=== PATIENT | female | born 2005 | race Caucasian/White ===

== ENCOUNTER 2025-03-29 16:34 | Emergency (ER) | payer OTHER, SELFPAY ==
--- OUTSIDE RECORDS SUMMARY | 2024-08-14 10:30 | XMS_ITS ---
Author Organization [facility] es Address [address] [place] [address] Care Team Providers Care Collections Attorney Name Role Phone Niya Maldonado Primary Care Provider REASON FOR VISIT Pt is a 18 year old female JAILENE FROM [facility] [employer] Medications Medication SIG (Take, Route, Frequency, Duration) Notes Start Date End Date Status PROzac 10 MG Capsule 1 capsule Orally Once a day ; Duration: 30 day(s) Not-Taking/PRNAuvelity 45-105 MG Tablet Extended Release1 tablet in the morning Orally Once a day; Duration: 30 day(s)04/07/2023ctivehydrOXYzine HCl 25 MG TabletTAKE 1 TO 2 TABLETS BY MOUTH ONCE DAILY NEEDED FOR 30 DAYS; Duration: 30ActiveSertraline HCl 50 MG TabletTAKE 1 TABLET BY MOUTH EVERY DAY; Duration: 30 day(s)Not-Taking/PRN Encounters Encounter Location Date Provider Diagnosis [address] [address] 08/14/2024 Niya Maldonado Plan Of Treatment No Information Progress Notes * COREY ROSASDOB: [birth year] (19 yo F)Acc No.[id number]:08/14/2024 Behavioral Health Patient: Beto COREY SPENCER :?Niya MaldonadoDOB:2005???Age:18 Y???Sex: FemaleDate:08/14/2024Phone:[phone]:[address] [id number] Subjective: * Chief Complaints: * P t is a 18 year old female JAILENE FROM [facility] * Medications: T akingAuvelity 45-105 MG Tablet Extended Release 1 tablet in the morning Orally Once a day hydrOXYzine HCl 25 MG Tablet TAKE 1 TO 2 TABLETS BY MOUTH ONCE DAILY NEEDED FOR 30 DAYS Taking Auvelity 45-105 MG Tablet Extended Release 1 tablet in the morning Orally Once a day Taking hydrOXYzine HCl 25 MG Tablet TAKE 1 TO 2 TABLETS BY MOUTH ONCE DAILY NEEDED FOR 30 DAYS Not-Taking/PRNPROzac 10 MG Capsule 1 capsule Orally Once a day Sertraline HCl 50 MG Tablet TAKE 1 TABLET BY MOUTH EVERY DAY Not-Taking/PRN PROzac 10 MG Capsule 1 capsule Orally Once a day Not-Taking/PRN Sertraline HCl 50 MG Tablet TAKE 1 TABLET BY MOUTH EVERY DAY Billing Information: * Procedure Codes: * Electronic signature of ROBBIE RichHNP on 03/29/2025 at 05:22 PM EST Sign off status: Pending * Provider: Beto Maldonado Date: 0 08/14/2024 Generated for Printing/Faxing/eTransmitting on:?03/29/2025 05:22 PM EST
--- OUTSIDE RECORDS SUMMARY | 2024-12-10 05:30 | XMS_ITS ---
Author Organization [facility] es Address [address] [place] [address] Care Team Providers Care Punch Press Feeder Name Role Phone Niya Maldonado Primary Care Provider REASON FOR VISIT 2 month F/U virtual Doximity Encounters Encounter Location Date Provider Diagnosis [facility] [address] [place] [address] 12/10/2024 Niya Maldonado Plan Of Treatment No Information Progress Notes * COREY ROSASDOB: [birth year] (19 yo F)Acc No.[id number]:12/10/2024 Behavioral Health Patient: COREY NICOLE :?Niya MaldonadoDOB:2005???Age:19 Y???Sex: FemaleDate:12/10/2024Phone:[phone]:[address] [id number] Subjective: * Chief Complaints: * 2 month F/U virtual Doximity Billing Information: * Procedure Codes: * Electronic signature of RAMÓN Rich on 03/29/2025 at 05:22 PM EST Sign off status: Pending * Provider: Beto Maldonado Date: 0 12/10/2024 Generated for Printing/Faxing/eTransmitting on:?03/29/2025 05:22 PM EST
--- OUTSIDE RECORDS SUMMARY | 2024-12-27 03:15 | XMS_ITS ---
Author Organization [facility] es Address [address] [place] [address] Care Team Providers Care Unleavened Dough Mixer Name Role Phone Niya Maldonado Primary Care Provider [phone] REASON FOR VISIT BH F/U Encounters Encounter Location Date Provider Diagnosis [facility] [address] [place] [address] 12/27/2024 Niya Maldonado Plan Of Treatment No Information Progress Notes * COREY ROSASDOB: [birth year] (19 yo F)Acc No.[id number]:12/27/2024 Behavioral Health Patient: COREY NICOLE :?Niya MaldonadoDOB:2005???Age:19 Y???Sex: FemaleDate:12/27/2024Phone:[phone]:[address] [place] [id number] Subjective: * Chief Complaints: * B H F/U Billing Information: * Procedure Codes: * Electronic signature of RAMÓN Rich on 03/29/2025 at 05:23 PM EST Sign off status: Pending * Provider: Beto Maldonado Date: 0 12/27/2024 Generated for Printing/Faxing/eTransmitting on:?03/29/2025 05:23 PM EST
[2025-03-29 16:58] VITALS: BP 111/71; PULSE 81; TEMP 37.1; O2SAT 100; BMI 23.8
--- OUTSIDE RECORDS SUMMARY | 2025-03-29 17:23 | XMS_ITS | Patient Health Record ---
Author Organization [employer] [facility] es Address [address] [place] [address] Care Team Providers Care Respiratory Care Faculty Name Role Phone Niya Maldonado Primary Care Provider [phone] Allergies No Known Allergies Reason For Referral No Information Medications Medication SIG (Take, Route, Frequency, Duration) Notes Start Date End Date Status cloNIDine HCl 0.1 MG Tablet 1 tablet at bedtime Orally Once a day new medication :) 09/10/2024 ActivePROzac 20 MG Capsule1 capsule Orally Once a day; Duration: 30 daysActive Auvelity 45-105 MG Tablet Extended Release1 tablet in the morning Orally Once a day; Duration: 30 day(s)04/07/2023Not-Taking/PRNhydrOXYzine HCl 25 MG TabletTAKE 1 TO 2 TABLETS BY MOUTH ONCE DAILY NEEDED FOR 30 DAYS; Duration: 30 Not-Taking/PRNSertraline HCl 50 MG TabletTAKE 1 TABLET BY MOUTH EVERY DAY; Duration: 30 day(s)Not-Taking/PRN Social History Tobacco Use: Social History Observation Description Date Details (start date - stop date) Current Smoker NA - NA Social History GeneralSocial InfoQuestionAnswerNotesDepression Screening (PHQ-9):Little interest or pleasure in doing thingsNearly every dayFeeling down, depressed, or hopelessSeveral daysTrouble falling or staying asleep, or sleeping too much Nearly every dayFeeling tired or having little energyNearly every dayPoor appetite or overeatingNearly every dayFeeling bad about yourself-or that you are a failure or have let yourself or your family downNot at allTrouble concentrating on things, such as reading the newspaper or watching television Several daysMoving or speaking so slowly that other people could have noticed. Or the opposite being so fidgetyor restless that you have been moving around a lot more than usualMore than half the daysThoughts that you would be better off , or of hurting yourself in some waySeveral days(Consider Suicide Assessment Risk)Total Elvzw19EnvzzxphgxffwHztvwszumz severe depressionSubstance abuse/mental health issues of patient/familyPatient -DeniesDrug/Alcohol:Social InfoQuestionAnswerNotesAUDIT-C (Standard)Did you have a drink containing alcohol in the past year?QnJajynz8GhkuexwhdnxrtfAyyxhjlfZiufcrf Use:Social InfoQuestion AnswerNotesTobacco Control (Standard)Tobacco use:Current smoker? How often do you smoke cigarettes?Every day? Are you interested in quitting?Not ready to quit Additional Findings: Tobacco usere-cigaretteSection Notes: Vape Vape Vape Vape Problems Problem Type SNOMED Code ICD Code Onset Dates Problem Status W/U Status Risk Notes Problem Generalized anxiety disorder (24997418) Generalized Anxiety Disorder (CONY) (F41.1) ActiveconfirmedProblemPosttraumatic stress disorder (40644315)PTSD (post- traumatic stress disorder) (F43.10)ActiveconfirmedProblemMajor depression, single episode (81637861)Major depressive disorder with current active episode, unspecified depression episode severity, unspecified whether recurrent (F32.9) ActiveconfirmedProblemRecurrent major depressive episodes, moderate (550578011) Recurrent major depressive episodes, moderate (F33.1)Activeconfirmed Vital Signs Heart Rate 70 /min 09/10/2024 Puogserddts01.5 degrees Qqvdwenmrb85/05/7625Zxkywdnc47 %09/10/2024lood pressure fwuvwgboo02 mm Hg09/10/20246356Lvwike93.5 in09/10/2024lood pressure gcawotzc075 mm Hg09/10/20247619Zejaxn050.0 lbs09/10/2024BMI20.34 kg/m209/10/2024 Encounters Encounter Location Date Provider Diagnosis [facility] [address] [place] [address] 12/10/2024 Niya Maldonado [facility] [address] [place] [address]/12/2024 Niya EricaRecurrent major depressive episodes, moderate F33.1F[facility] [address] [place] [address]/Leslie AlexibergerRecurrent major depressive episodes, moderate F33.1 ; Generalized Anxiety Disorder (CONY) F41.1 and PTSD (post-traumatic stress disorder) F43.10[facility] [place] [address]/09/2024Leslidoreen MaldonadoRecurrent major depressive episodes, moderate F33.1 ; Generalized Anxiety Disorder (CONY) F41.1 and PTSD (post-traumatic stress disorder) F43.10[facility] [place] [address]/07/2024Lesyaneli MaldonadoRecurrent major depressive episodes, moderate F33.1 ; Generalized Anxiety Disorder (CONY) F41.1 and PTSD (post-traumatic stress disorder) F43.10 Assessments Encounter Date Diagnosis (ICD Code) Assessment Notes Treatment Notes Treatment Clinical Notes Section Notes 08/21/2024 Recurrent major depressive episo olesya, moderate (ICD-10 - F33.1) Informed consent obtained: YES, we discussed the diagnosis/diagnoses, the treatment options, treatment(s) recommendations vs. no treatment. We discussed risks and benefits of treatment options, treatment recommendations vs. no treatment. Currently at low risk for self harm. Denies ongoing feelings of hopelessness. Denies ongoing suicidal ideation, intent or plan in session. Pharmacological management: Alternative medication plans were discussed with the patient and or guardian. All relevant and serious adverse effects were discussed. Standard precautions and potential benefits were discussed. Patient/Guardian consented to begin medication/ continue treatment plan. questions answered satisfactorily, agreeable to treatment plan Cont current treatment Tolerating meds well, compliant Call for problems Follow up 3 weeks Patient/Guardian will call sooner if symptoms worsen. Patient understands to go to the ER if neededif symptoms become severe. Crisis intervention plan was discussed and agreed upon. Patient/Guardian will call 911 in case of emergency. Emergency contact information was provided to the patient/guardian. 09/10/2024Recurrent major depressive episodes, moderate (ICD-10 - F33.1) Informed consent obtained: YES, we discussed the diagnosis/diagnoses, the treatment options, treatment(s) recommendations vs. no treatment. We discussed risks and benefits of treatment options, treatment recommendations vs. no treatment. Currently at low risk for self harm. Denies ongoing feelings of hopelessness. Denies ongoing suicidal ideation, intent or plan in session. Pharmacological management: Alternative medication plans were discussed with the patient and or guardian. All relevant and serious adverse effects were discussed. Standard precautions and potential benefits were discussed. Patient/Guardian consented to begin medication/ continue treatment plan. questions answered satisfactorily, agreeable to treatment plan Cont current treatment Tolerating meds well, compliant Call for problems Follow up 1 month Patient/Guardian will call sooner if symptoms worsen. Patient understands to go to the ER if neededif symptoms become severe. Crisis intervention plan was discussed and agreed upon. Patient/Guardian will call 911 in case of emergency. Emergency contact information was provided to the patient/guardian. 10/09/2024Recurrent major depressive episodes, moderate (ICD-10 - F33.1) Informed consent obtained: YES, we discussed the diagnosis/diagnoses, the treatment options, treatment(s) recommendations vs. no treatment. We discussed risks and benefits of treatment options, treatment recommendations vs. no treatment. Currently at low risk for self harm. Denies ongoing feelings of hopelessness. Denies ongoing suicidal ideation, intent or plan in session. Pharmacological management: Alternative medication plans were discussed with the patient and or guardian. All relevant and serious adverse effects were discussed. Standard precautions and potential benefits were discussed. Patient/Guardian consented to begin medication/ continue treatment plan. questions answered satisfactorily, agreeable to treatment plan Cont current treatment Tolerating meds well, compliant Call for problems Follow up 2 months Patient/Guardian will call sooner if symptoms worsen. Patient understands to go to the ER if neededif symptoms become severe. Crisis intervention plan was discussed and agreed upon. Patient/Guardian will call 911 in case of emergency. Emergency contact information was provided to the patient/guardian. 12/14/2024Recurrent major depressive episodes, moderate (ICD-10 - F33.1) 10/09/2024Generalized Anxiety Disorder (CONY) (ICD-10 - F41.1)09/10/2024 Generalized Anxiety Disorder (CONY) (ICD-10 - F41.1)Clonidine- Encouraged to call office or report to the if the patient experiences dizziness or lightheadedness 08/21/2024Generalized Anxiety Disorder (CONY) (ICD-10 - F41.1)08/21/2024PTSD (post-traumatic stress disorder) (ICD-10 - F43.10)09/10/2024PTSD (post-traumatic stress disorder) (ICD-10 - F43.10)10/09/2024PTSD (post-traumatic stress disorder) (ICD-10 - F43.10) Plan Of Treatment No Information Insurance Providers Payer Name Payer Address Payer Phone Subscriber Number Group Number Insured Name Patient Relationship to Insured Coverage Start Date Coverage End Date [employer] [place] [employer] [address] [place] [address] [id number] Rishi ROSAS - patient is the [id number] 2024 Wrap [facility] [address] [place] [id number], ISABELLASelf - patient is the [id number] 2024 Medical (General) History Medical History History ICD Code Acid Reflux
--- OUTSIDE RECORDS SUMMARY | 2025-03-29 17:23 | XMS_ITS | Clinical Summary ---
Author Organization [facility] Address [address] [place] [address] Phone Care Team Providers Care Motion Picture Camera Operator Name Role Phone Unavailable Primary Care Provider Unavailabl e Social History Tobacco UseTypesPacks/DayYears UsedDateSmoking Tobacco: Never Assessed CommentsUnknownSex and Gender InformationValueDate RecordedSex Assigned at Not on fileLegal UtkRccoor85/25/2022 8:53 PM ESTGender IdentityNot on fileSexual OrientationNot on file Last Filed Vital Signs Vital SignReadingTime TakenCommentsBlood Sqjuekdo190/7209 2:49 PM EDT Clbuh20399/06/2021 1:08 PM CZFEmqixviuuzi95.9 ??C (98.5 ??F)04/13/2021 1:08 PM ESTRespiratory Rate--Oxygen Klvubztlkp10%04/13/2021 1:08 PM ESTInhaled Oxygen Concentration--Somqiy47 kg (130 lb)07/02/2021 2:32 PM CVNRzuprp481.2 cm (5' 1.5 )01/20/2021 2:49 PM EDTBody Mass Index-- Plan of Treatment Health MaintenanceDue DateLast DoneCommentsHIV Igyzetuvz59/12/2004Lipid Panel 2003Hepatitis B Vaccines (3 of 3 - 3-dose series), 2003Hearing Screening (#1)2007HPV Vaccines (2 - 2-dose series) Meningococcal B Vaccine (1 of 2 - Standard)2019 Hepatitis C Ppzwmhtzr39/12/2022Yearly Adult Gflpxipd21/ervical Cancer Xvozlshmz81/12/2025HPV/Vdqrfo9109/17/2024Pap Smear09/17/2024Influenza Vaccine (#1)2024OVID-19 Vaccine ( - season)2025 DTaP/Tdap/Td Vaccines (6 - Td or Tdap)6010/14/2015, 11/28/2008, 08/13/2004, Additional history existsZoster Vaccines (1 of 2)09/17/2053 11/28/2008, 11/11/2004Pneumococcal Vaccine: Pediatrics and At-Risk Adult PatientsAged Out08/13/2004, 05/11/2004, 03/20/2004, Additional history existsNo longer eligible based on patient's age to complete this topicHIB Vaccines Pewlncjgr04/06/2005, 05/11/2004, 03/20/2004, Additional history existsIPV EiznmoutJbkyjqifi78/23/2009, 08/13/2004, 05/11/2004, Additional history exists MMR WjctrannBjxidndkg33/23/2009, 11/11/2004Hepatitis A VaccinesCompleted 10/14/2015, 12/18/2013Meningococcal VaccineAged Out10/14/2015No longer eligible based on patient's age to complete this topicRotavirus VaccinesAged OutNo longer eligible based on patient's age to complete this topic
--- OUTSIDE RECORDS SUMMARY | 2025-03-29 17:23 | XMS_ITS | Clinical Summary ---
Author Organization [facility] Address [address] [place] [place] [address] Care Team Providers Care Orthopedic Podiatrist Name Role Phone Morenita Javed MD, IBCLC Primary Care Provid er Allergies No known active allergies Medications MedicationSigDispense QuantityRefillsLast FilledStart DateEnd DateStatus FLUoxetine (PROzac) 20 MG capsule Indications:Major depressive disorder with single episode, in full remissionTake 1 capsule (20 mg) by mouth Daily 90 capsule [id number] Additional Information Patient not taking.Reported on 02/25/2025 multivitamin () 27-0.8 MG tablet Take 1 tablet by mouth DailyActive Active Problems ProblemNoted DateDiagnosed TgcoQdzjdqk51/21/2023 Assessment & Plan (12/27/2022 1:59 PM EDT): 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 I agree Zoloft to inna good option for her. I encouraged her to start this. Reviewed potential side effects and ways to mitigate them. Her review of systems is positive for anxiety, irregular menstrual cycle this past month, diarrhea,heat intolerance, night sweats. Therefore I recommend checking thyroid studies to r/o hyperthyroidism. Will call or message with results Difficulty /21/2023 Assessment & Plan (12/27/2022 1:52 PM EDT): Patient has difficulty falling asleep due to racing thoughts and worrying about falling asleep. I do believe SSRI will eventually help with this, though it may take time. Recommend practicing sleep hygiene to help reset sleep associations Estimated Date of TiacnxhqHckicrtfFca35/28/2026ased on Ultrasound Resolved Problems ProblemNoted DateDiagnosed DateResolved SfukCnavmaxtaotx96 Menorrhagia with irregular cycle Encounters DateTypeDepartmentCare EanwVxhetknzxpa95/04/2025 10:15 AM ESTAncillary Procedure [facility] Holden KEENANN [address] [place] [address] Spotting affecting in first trimester ([facility])03/12/2025Travel 02/27/2025Telephone [facility]OMT[facility] Holden KEENANN [address] [place] [address] Tamara Rosario LPN 02/25/2025 2:30 PM EDTInitial [facility]OMTano Holden KEENANN [address] [place] [address] [place]: 4w1d02/25/20259153Mumflh99/08/2025Results Follow-Up [place] [address] [place] [address] Morenita Javed MD, IBCLC HCG, quantitative, , HCG, quantitative, zgzlecukq10/07/2025Telephone [facility] Holden NICKGYN [address] [place] [address] Sarah Berry DO 02/11/2025Telephone [address] [address] Morenita Javed MD, IBCLC Lab Tquzjf7601/09/2025 10:20 AM EDTOffice Visit [address] [address] Morenita Javed MD, IBCLC Annual physical exam (Primary Dx); Major depressive disorder with single episode, in full remission ; Psychophysiological jzuftabj08/03/2025amboo flowsheet [facility] [address] [place] [address] Morenita Javed MD, IBCLC 01/09/20256852Nwyldm70/02/5744Xoyjad83/27/2025Travelfrom Last 3 Months Family History Medical HistoryRelationNameCommentsHeart attackFatherHeart diseaseFatherNo Known ProblemsMaternal GrandfatherHypertensionMaternal GrandmotherHashimoto's thyroiditisMotherHypertensionMotherEndometriosisOther 1cousinDown syndromeOther 2siblingStillbirthNo Known ProblemsPaternal GrandfatherNo Known ProblemsPaternal GrandmotherRelationNameStatusCommentsFatherAliveMaternal GrandfatherMaternal GrandmotherMotherAliveOther 1cousinOther 2siblingPaternal GrandfatherPaternal Grandmother Social History Tobacco UseTypesPacks/DayYears UsedDateSmoking Tobacco: NeverSmokeless Tobacco: Never Tobacco Cessation:Counseling Given: Not Answered Alcohol UseStandard Drinks/WeekCommentsNever0 (1 standard drink = 0.6 oz pure alcohol)B1300 Health LiteracyAnswerDate RecordedHow often do you need to have someone help you when you read instructions, pamphlets, or other written material from your doctor or pharmacy?Never03/07/2024Social Connection and Isolation PanelAnswerDate RecordedIn a typical week, how many times do you talk on the phone with family, friends, or neighbors?More than three times a week 03/07/2024How often do you get together with friends or relatives?More than three times a week03/07/2024How often do you attend yarsanism or scientologist services?Never4Do you belong to any clubs or organizations such as yarsanism groups, unions, fraternal or athletic groups, or school groups?No 03/07/2024How often do you attend meetings of the clubs or organizations you belong to?Never4Are you , , , , never , or living with a partner?Living with ggwctne2803/07/2024UDIT-CAnswerDate RecordedQ1: How often do you have a drink containing alcohol?Never03/07/2024 Average Number of DrinksNot on file03/07/2024Q3: How often do you have six or more drinks on one occasion?Never03/07/2024Overall Financial Resource Strain (CARDIA)AnswerDate RecordedHow hard is it for you to pay for the very basics like food, housing, medical care, and heating?Not very hard03/07/2024HQ-2Answer Date RecordedPatient Health Questionnaire-2 Wemqo638FinColumbus Regional Health of Occupational Health - Occupational Stress QuestionnaireAnswerDate RecordedDo you feel stress - tense, restless, nervous, or anxious, or unable to sleep at night because yourmind is troubled all the time - these days?Very much03/07/2024 Exercise Vital SignAnswerDate RecordedOn average, how many days per week do you engage in moderate to strenuous exercise (like a brisk walk)?7 days03/07/2024On average, how many minutes do you engage in exercise at this level?30 min 03/07/2024Hunger Vital SignAnswerDate RecordedWithin the past 12 months, you worried that your food would run out before you got the money to buymore.Never true03/07/2024Within the past 12 months, the food you bought just didn't last and you didn't have money to get more.Never true03/07/2024RAPARE - TransportationAnswerDate RecordedIn the past 12 months, has lack of transportation kept you from medical appointments or from getting medications?No 03/07/2024In the past 12 months, has lack of transportation kept you from meetings, work, or from getting things needed for daily living?No03/07/2024 Housing Stability Vital SignAnswerDate RecordedIn the last 12 months, was there a time when you were not able to pay the mortgage or rent on time?No03/07/2024 Number of Times Moved in the Last YearNot on file03/07/2024t any time in the past 12 months, were you homeless or living in a long-term (including now)?No 03/07/2024Estimated Date of ZfqibhygZdsmdnooZcw59/28/2026ased on UltrasoundSex and Gender InformationValueDate RecordedSex Assigned at Zgdbrx0205/03/2023 8:48 AM ESTLegal UyfJkjbwp70/15/2023 6:54 PM EDTGender Identity Fxwlpv9505/03/2023 8:48 AM ESTSexual OrientationNot on file Last Filed Vital Signs Vital SignReadingTime TakenCommentsBlood Byyzcxjk942/68001/09/2025 10:18 AM EDT Saibc0546/03/2025 10:18 AM PCJRfpwhuounhg65.9 ??C (96.7 ??F)01/09/2025 10:18 AM EDTRespiratory Nhvn427311/19/2024 9:14 AM EDTOxygen Fqjdvnkvyt66%01/09/2025 10:18 AM EDTInhaled Oxygen Concentration--Ucsoml09.3 kg (117 lb 6.4 oz)01/09/2025 10:18 AM YFIVxwegr760.5 cm (5' 2 )01/09/2025 10:18 AM EDTBody Mass Index21.47 01/09/2025 10:18 AM EDT Plan of Treatment DateTypeDepartmentCare Team (Latest Contact Info)Ldyledteqpc72/09/2025 1:45 PM ESTInitial [facility] [place] [facility] [address] [place] [address] Sarah Berry, [address] [place] [address] 01/16/2026 9:20 AM EDTProcedure Visit [facility] [address] [place] [address] Morenita Javed MD, IBCLC [address] [place] [address] Health MaintenanceDue DateLast DoneCommentsCOVID-19 Vaccine ( season) 2025Influenza Vaccine (#1)2025Pneumococcal Vaccine: Pediatrics (0 to 5 Years) and At-Risk Patients (6 to 64 Years)Aged OutNo longer eligible based on patient's age to complete this topic Goals GoalPatient Goal TypeAssociated ProblemsRecent ProgressPatient-Stated?Author Help patient manage antidepressant medication Care PlanPatient on antidepressant monitoring Morenita Maurice MD, IBCLC Baseline PHQ-9 Care PlanBaseline PHQ-9Morenita Garvin MD, IBCLC Reminders Care PlanOB RemindersMarla Anderson LPN Procedures Procedure NamePriorityDate/TimeAssociated DiagnosisCommentsUS OB TRANSVAGINAL Umxaopz0603/12/2025 10:46 AM EST Spotting affecting in first trimester ([facility]) URINE CULTURE CLEAN CATCH EJTIXSZvticdw47/20/2025 3:03 PM EDT UR MICROSCOPIC ZIRWTBLkzrlmp87/20/2025 3:03 PM EDT RPR (DX) W/REFL TITER AND CONFIRMATORY WABVHTIAtjjqso16/20/2025 3:03 PM EDT care, subsequent in first trimester ([facility]) HYPERCOAG PANEL ZEGZHZVlfeldz53/20/2025 3:03 PM EDT care, subsequent in first trimester ([facility]) DRUG SCREEN 17 W/CONF, OPGkftpdf60/20/2025 3:03 PM EDT Encounter for drug screening HEPATITIS C JGRNBTRLScvwimy38/20/2025 3:03 PM EDT care, subsequent in first trimester ([facility]) BLOOD TYPE AND JIAJMYLokjjch80/20/2025 3:03 PM EDT care, subsequent in first trimester ([facility]) HEPATITIS B SURFACE ANTIGEN W/REFL PXPNXRSDmboojd88/20/2025 3:03 PM EDT care, subsequent in first trimester ([facility]) RUBELLA AB (IGG), IMMUNE VLARQOAcnnsgx22/20/2025 3:03 PM EDT care, subsequent in first trimester ([facility]) CBC (INCLUDES DIFF/PLT)Moogzmx9202/25/2025 3:03 PM EDT care, subsequent in first trimester ([facility]) URINALYSIS, COMPLETE W/HDFERMNKTQGypaion23/20/2025 3:03 PM EDT care, subsequent in first trimester ([facility]) CULTURE, URINE, WZOXIHNErgdkes00/20/2025 3:03 PM EDT care, subsequent in first trimester ([facility]) HCG, TOTAL, QIFbuauxr60/09/2025 9:17 AM EDT test positive ([facility]) HCG, TOTAL, TVEpjmuly09/07/2025 10:17 AM EDT test positive ([facility]) from Last 3 Months Results * US OB transvaginal (03/12/2025 10:46 AM EST)Anatomical RegionLaterality ModalityBodyUltrasoundStudy GAStudy DateStudy EDDWorking VINCENT (Source) / (Last Menstrual Period)Fetus A MeasurementsValueGA (days) CRLSac DiameterBiparietal DiameterHead CircumferenceAbdominal Circumference Femur LengthFetal Ulna LengthFetal Humerus LengthFetal Tibia LengthHeart Rate YOLK SAC MEASUREMENTCERVICAL W/FUNDAL PRESSURECERVICAL W/ VALSALVASpecimen (Source)Anatomical Location / LateralityCollection Method / VolumeCollection TimeReceived Time Narrative 03/14/2025 4:05 PM EST Table formatting from the original result was not included. Images from the original result were not included. ?? Obstetrics & Gynecology ? [address] ? [address] ? [address] ?[address], [address] ? [place] [address] [place] [address] ? - - - - - - - - - - - - - - - - - - - - - - - - - - - - - - - - - - - - - - - - - - - - - - - - - - - - - - - - - - - - - - - - - - ?Early Assessment Patient name: Shannon Vicente : 2005 (19 y.o.) Date of exam: 03/12/25 - - - - - - - - - - - - - - - - - - - - - - - - - - - - - - - Indication: first trimester screening, first trimester bleeding, long cycles Surgical History: none Method: Transvaginal ultrasound examination View: Adequate - - - - - - - - - - - - - - - - - - - - - - - - - - - - - - - Type of gestation: Molina Number of embryos: 1 - - - - - - - - - - - - - - - - - - - - - - - - - - - - - - - Dating: Method of dating: Date: Details: Gest Age: VINCENT: Assigned dating: LMP 01/15/25 ??8 w 0 d 10/22/25 [] Ultrasound 03/12/25 CRL ??6 w 2 d 11/03/25 [x] - - - - - - - - - - - - - - - - - - - - - - - - - - - - - - - Fetus: Gestational sac: visualized Location: Intrauterine Yolk sac: visualized (3.7 mm) Amniotic sac: too early to visualize Embryo: visualized Cardiac activity: present FHR: 113 bpm - - - - - - - - - - - - - - - - - - - - - - - - - - - - - - - Maternal Structures: Uterus: Visualized Size: 9.2 x 5.8 x 4.5 cm ??Volume: 123 cm?? Appearance: normal in size and contour Right ovary: Visualized Size: 4.2 x 2.3 x 1.8 cm ??Volume: 5.8 cm?? Appearance: The right ovary contains the corpus luteal cyst: thick-walled, moderately echogenic (2.4 x 1.6 x 2.5 cm) No adnexal mass visualized Left ovary: Visualized Size: 2.6 x 1.5 x 1.2 cm ??Volume: 2.6 cm?? Appearance: no cysts visualized No adnexal mass visualized - - - - - - - - - - - - - - - - - - - - - - - - - - - - - - - - - - - - - - - - - - - - - - - - - - - - - - - - - - - - - - - - - - Impression: There is a single intrauterine measuring 6 w 2 d, which establishes an EDC of 11/03/25. The uterus and adnexa appear normal. *Please note that a normal ultrasound does not rule out anomalies* - - - - - - - - - - - - - - - - - - - - - - - - - - - - - - - - - - - - - - - - - - - - - - - - - - - - - - - - - - - - - - - - - - Ordering/Reading Provider: Sarah Berry D.O. ??Rig Manager: Minoo Burk RDMS Authorizing ProviderResult TypeResult StatusSarah Berry DOI OB US PROCEDURESFinal Result * (ABNORMAL) DRUG SCREEN 17 W/CONF, UR (02/25/2025 3:03 PM EDT)ComponentValueRef RangeTest MethodAnalysis TimePerformed AtPathologist ZvwbyoetnLIEZQIWBZU41(L) >=20 mg/dLLABCORPComment: Note: ??Urinary creatinine is low; ability to detect some ? drugs may be compromised. ??Interpret results ? with caution. REFERENCE RANGE: Ref Range>=20 ETHANOL BIOMARKERS IANegativeCUTOFF:500 ng/mLLABCORPAMPHETAMINES IANegative CUTOFF:300 ng/mLLABCORPBARBITURATES IANegativeCUTOFF:200 ng/mLLABCORP BENZODIAZEPINES IANegativeCUTOFF:50 ng/mLLABCORPCOCAINE METABOLITE IANegative CUTOFF:150 ng/mLLABCORPPHENCYCLIDINE IANegativeCUTOFF:25 ng/mLLABCORP CANNABINOIDS IANegativeCUTOFF:20 ng/mLLABCORP6-ACETYLMORPHINE IANegative CUTOFF:10 ng/mLLABCORPOPIATE CLASS IANegativeCUTOFF:100 ng/mLLABCORPOXYCODONE CLASS IANegativeCUTOFF:100 ng/mLLABCORPMETHADONE IANegativeCUTOFF:100 ng/mL LABCORPFENTANYL IANegativeCUTOFF:2.0 ng/mLLABCORPBUPRENORPHINE IANegative CUTOFF:5.0 ng/mLLABCORPTRAMADOL IANegativeCUTOFF:200 ng/mLLABCORPPROPOXYPHENE IA NegativeCUTOFF:300 ng/mLLABCORPTAPENTADOL IANegativeCUTOFF:200 ng/mLL[facility] NICOTINE METABOLITE++POSITIVE++(A)LABCORPCOTININE>200ng/mLLABCORPSpecimen (Source)Anatomical Location / LateralityCollection Method / VolumeCollection TimeReceived Time02/25/2025 3:03 PM EDT1 Narrative [facility] - 02/27/2025 7:07 PM EDT Test(s) 142208-KISKZYM BIOMARKERS IA; 473194-FYCWUJFI IA was developed and its performance characteristics determined by [facility]. It has not been cleared or approved by the Food and Drug Administration. Performed at: ??01 - [facility] [address] ??[id number] Horticulture Superintendent: Germania Russell [facility], Phone: ??[phone] Authorizing ProviderResult TypeResult StatusKathleen E Kristi DOLAB BLOOD ORDERABLESFinal ResultPerforming OrganizationAddressCity/State/ZIP CodePhone Number [facility] * Urine Culture Clean Catch Reflex (02/25/2025 3:03 PM EDT)ComponentValueRef RangeTest MethodAnalysis TimePerformed AtPathologist SignatureUr Cult 1No growthLABCORPSpecimen (Source)Anatomical Location / LateralityCollection Method / VolumeCollection TimeReceived Time02/25/2025 3:03 PM EDT1 Narrative [facility] - 02/27/2025 7:07 PM EDT Performed at: [address] [place] [address] ??[id number] Horticulture Superintendent: Luciano Celaya PhD, Phone: ??[phone] Authorizing ProviderResult TypeResult StatusKathleen E Rinkes DOLAB URINE ORDERABLESFinal ResultPerforming OrganizationAddressCity/State/[facility] CodePhone Number [facility] * Ur Microscopic Reflex (02/25/2025 3:03 PM EDT)ComponentValueRef RangeTest MethodAnalysis TimePerformed AtPathologist SignatureWBC Ur0-50 - 5 /hpfLABCORP RBC Ur0-20 - 2 /hpfLABCORPEpithelial Cells (non renal) Ur0-100 - 10 /hpf [facility]PCasts UrNone seenNone seen /lpfLABCORPBacteria UrFewNone seen/Few [facility]ABC[facility]PSpecimen (Source)Anatomical Location / LateralityCollection Method / VolumeCollection TimeReceived Time02/25/2025 3:03 PM EDT1 Narrative [facility] - 02/27/2025 7:07 PM EDT Performed at: [address] ??[id number] Horticulture Superintendent: Luciano Celaya PhD, Phone: ??[phone] Authorizing ProviderResult TypeResult StatusKathleen E Rinkes DOLAB URINE ORDERABLESFinal ResultPerforming OrganizationAddressty/[facility] CodePhone Number [facility] * Rpr (dx) w/refl titer and confirmatory testing (02/25/2025 3:03 PM EDT) ComponentValueRef RangeTest MethodAnalysis TimePerformed AtPathologist SignatureRPRNon ReactiveNon ReactiveLABCORPSpecimen (Source)Anatomical Location / LateralityCollection Method / VolumeCollection TimeReceived Time BloodVenous blood specimen / Fyrzqcw8102/25/2025 3:03 PM EDT1 Narrative [facility] - 02/27/2025 7:07 PM EDT Performed at: [address], [place] ??[id number] Horticulture Superintendent: Luciano Celaya PhD, Phone: ??[phone] Authorizing ProviderResult TypeResult StatusSarah OROPEZA BLOOD ORDERABLESFinal ResultPerforming OrganizationAddGeisinger St. Luke's Hospitalty/State/ZIP CodePhone Number [facility] * Hepatitis C antibody (02/25/2025 3:03 PM EDT)ComponentValueRef RangeTest MethodAnalysis TimePerformed AtPathologist SignatureHep C Virus AbNon Reactive Non ReactiveLABCORPComment: HCV antibody alone does not differentiate between previously resolved infection and active infection. Equivocal and Reactive HCV antibody results should be followed up with an HCV RNA test to support the diagnosis of active HCV infection. Specimen (Source)Anatomical Location / LateralityCollection Method / Volume Collection TimeReceived TimeBloodVenous blood specimen / Mznqbuw9002/25/2025 3:03 PM EDT1 Narrative [facility] - 02/27/2025 7:07 PM EDT Performed at: 02 - [address] ??[id number] Horticulture Superintendent: Luciano Celaya PhD, Phone: ??[phone] Authorizing ProviderResult TypeResult StatusSarah KNOTT BLOOD ORDERABLESFinal ResultPerforming OrganizationAddGeisinger St. Luke's Hospitalty/[facility] CodePhone Number [facility] * HIV-2 antigen (02/25/2025 3:03 PM EDT)ComponentValueRef RangeTest Method Analysis TimePerformed AtPathologist SignatureHIV Scr 4th GenNon ReactiveNon ReactiveLABCORPComment: HIV-1/HIV-2 antibodies and HIV-1 p24 antigen were NOT detected. There is no laboratory evidence of HIV infection. HIV Negative Specimen (Source)Anatomical Location / LateralityCollection Method / Volume Collection TimeReceived TimeBloodVenous blood specimen / Nzutzvm2102/25/2025 3:03 PM EDT1 Narrative [facility] - 02/27/2025 7:07 PM EDT Performed at: [address] ??[id number] Horticulture Superintendent: Luciano Celaya PhD, Phone: ??[phone] Authorizing ProviderResult TypeResult StatusKathlkarla Berry DOLAB BLOOD ORDERABLESFinal ResultPerforming OrganizationAddressty/State/ZIP CodePhone Number [facility] * Rubella antibody, IgG (02/25/2025 3:03 PM EDT)ComponentValueRef RangeTest MethodAnalysis TimePerformed AtPathologist SignatureRubella IgG Abs1.43Immune >0.99 indexLABCORPComment: Non-immune <0.90 ?Equivocal ??0.90 - 0.99 Immune >0.99 Specimen (Source)Anatomical Location / LateralityCollection Method / Volume Collection TimeReceived TimeBloodVenous blood specimen / Ktjrubj9502/25/2025 3:03 PM EDT1 Narrative [facility] - 02/27/2025 7:07 PM EDT Performed at: [address] [place] [address] ??[id number] Horticulture Superintendent: Luciano Celaya PhD, Phone: ??[phone] Authorizing ProviderResult TypeResult StatusKathlprovidence mount carmel [facility] Shoshana Berry DOLAB BLOOD ORDERABLESFinal ResultPerforming OrganizationAddressty/[facility]/ZIP CodePhone Number [facility] * Hepatitis B surface antigen (02/25/2025 3:03 PM EDT)ComponentValueRef Range Test MethodAnalysis TimePerformed AtPathologist SignatureHep B Surf Ag Scr NegativeNegativeLABCORPSpecimen (Source)Anatomical Location / Laterality Collection Method / VolumeCollection TimeReceived TimeBloodVenous blood specimen / Hcjtxla1502/25/2025 3:03 PM EDT1 Narrative [facility] - 02/27/2025 7:07 PM EDT Performed at: [address] [place] [id number] Horticulture Superintendent: Luciano Celaya PhD, Phone: ??[phone] Authorizing ProviderResult TypeResult StatusKathleen E Rinkes DOLAB BLOOD ORDERABLESFinal ResultPerforming OrganizationAddressCity/State/ZIP CodePhone Number [facility] * (ABNORMAL) Urinalysis with microscopic (02/25/2025 3:03 PM EDT)ComponentValue Ref RangeTest MethodAnalysis TimePerformed AtPathologist SignatureSpecific S[place]heimer Urine1.0061.005 - 1.030LABCORPpH Urine6.55.0 - 7.5LABCORPColor Urine YellowYellowLABCORPAppearance UrineClearClearLABCORPWBC Esterase UrineTrace(A) NegativeLABCORPProtein UrineNegativeNegative/TraceLABCORPGlucose UrineNegative NegativeLABCORPKetones UrineNegativeNegativeLABCORPOccult Blood UrineNegative NegativeLABCORPBilirubin UrineNegativeNegativeLABCORPUrobilinogen,Semi-Qn Urine0.20.2 - 1.0 mg/dLLABCORPNitrite UrineNegativeNegativeLABCORPUr MicroscopicSee below:[facility]PComment:Microscopic was indicated and was performed.Specimen (Source)Anatomical Location / LateralityCollection Method / VolumeCollection TimeReceived TimeUrineUrine specimen obtained by clean catch procedure / Tbmcflw4902/25/2025 3:03 PM EDT1 Narrative [facility] - 02/27/2025 7:07 PM EDT Performed at: [address] ??[id number] Horticulture Superintendent: Luciano Celaya PhD, Phone: ??[phone] Authorizing ProviderResult TypeResult StatusKathleen E Rinkes DOLAB URINE ORDERABLESFinal ResultPerforming OrganizationAddressCity/State/ZIP CodePhone Number [facility] * CBC and differential (02/25/2025 3:03 PM EDT)ComponentValueRef RangeTest MethodAnalysis TimePerformed AtPathologist SignatureWBC8.73.4 - 10.8 x10E3/uL LABCORPRBC4.193.77 - 5.28 x10E6/rRXWMCSUDFdg71.811.1 - 15.9 g/lJHFBTMPUDzn80.5 34.0 - 46.6 %PQFNFBIPNA3816 - 97 lEHLALJGTWOE60.926.6 - 33.0 jnZLZVEIWKCZN95.1 31.5 - 35.7 g/uUPWHEPQIJGG30.011.7 - 15.4 %TGLCFXSYekxgelyf345140 - 450 x10E3/aWPYEVAAFKccequtxakk16Hio Estab. %TMBIHXYSieyur72Ewk Estab. %[facility] Bszjyrfsd6Uhu Estab. %XCOGBBKAqf6Jeq Estab. %JPWDWNLQincd0Mmh Estab. %[facility] Neutrophils Abs5.81.4 - 7.0 x10E3/uLLABCORPLymphs Abs2.10.7 - 3.1 x10E3/uL [facility]PMonocytesAbs0.60.1 - 0.9 x10E3/uLLABCORPEos Abs0.10.0 - 0.4 x10E3/uL [facility]PBaso Abs0.00.0 - 0.2 x10E3/uLLABCORPImmature Omwrimidarcp6Pdq Estab. % LABCORPImmature Grans Abs0.00.0 - 0.1 x10E3/uLLABCORPSpecimen (Source) Anatomical Location / LateralityCollection Method / VolumeCollection Time Received TimeBloodVenous blood specimen / Criiric0202/25/2025 3:03 PM EDT 02/25/2025 Narrative [facility] - 02/27/2025 7:07 PM EDT Performed at: [address] ??[id number] Horticulture Superintendent: Luciano Celaya PhD, Phone: ??[phone] Authorizing ProviderResult TypeResult StatusKatburton Berry [facility] BLOOD ORDERABLESFinal ResultPerforming OrganizationAddressCity/State/[facility] CodePhone Number [facility] * Type and screen (02/25/2025 3:03 PM EDT)ComponentValueRef RangeTest Method Analysis TimePerformed AtPathologist SignatureABO GroupingALABCORPRh Factor PositiveLABCORPComment: Please note: Prior records for this patient's ABO / Rh type are not available for additional verification. Antibody ScreenNegativeNegativeLABCORPSpecimen (Source)Anatomical Location / LateralityCollection Method / VolumeCollection TimeReceived TimeBloodVenous blood specimen / Wxdskpu5702/25/2025 3:03 PM EDT1 Narrative [facility] - 02/27/2025 7:07 PM EDT Performed at: 02 - [facility] ??[id number] Horticulture Superintendent: Luciano Celaya PhD, Phone: ??[phone] Authorizing ProviderResult TypeResult StatusKathleen E Rincristóbal DOLAB BLOOD ORDERABLESFinal ResultPerforming OrganizationAddressty/State/ZIP CodePhone Number [facility] * Urine culture (02/25/2025 3:03 PM EDT)ComponentValueRef RangeTest Method Analysis TimePerformed AtPathologist SignatureUrine Cult Rt StatusFinal report [facility]PSpecimen (Source)Anatomical Location / LateralityCollection Method / VolumeCollection TimeReceived TimeUrineUrine specimen obtained by clean catch procedure / Hnsxgvx4002/25/2025 3:03 PM EDT15Comment:UR Narrative [facility] - 02/27/2025 7:07 PM EDT Performed at: 02 - [facility] ??[id number] Horticulture Superintendent: Luciano Celaya PhD, Phone: ??[phone] Authorizing ProviderResult TypeResult StatusKathleen E Rincristóbal DOLAB MICROBIOLOGY - GENERAL ORDERABLESFinal ResultPerforming OrganizationAddressty/[facility] CodePhone Number [facility] * HCG, quantitative, (02/14/2025 9:17 AM EDT) Only the most recent of2 resultswithin the time period is included. ComponentValueRef RangeTest MethodAnalysis TimePerformed AtPathologist Signature HCG,[id number][iU]/mL02/14/2025 12:22 PM [facility] CtrComment: Approximate ?Approximate hCG Gestational Age ??Range (mIU/ml) (weeks) 0.2-1 ?5-50 ??1-2 ? 50-500 ??2-3 ?100-5,000 ??3-4 ?500-10,000 ??4-5 ?1,000-50,000 ??5-6 ? 10,000-100,000 ??6-8 ? 15,000-200,000 ??8-12 ?10,000-100,000 Specimen (Source)Anatomical Location / LateralityCollection Method / Volume Collection TimeReceived TimeOtherTopography unknown / Brcajwa2002/14/2025 9:17 AM EDT1 9:17 AM EDT Narrative Authorizing ProviderResult TypeResult StatusAlexandra Tello NAVARRO, IBCLCLAB BLOOD ORDERABLESFinal ResultPerforming OrganizationAddressCity/[facility] CodePhone Number [facility] [address] [place] [address], [facility] [address] [place] [address] from Last 3 Months Additional Health Concerns Active ProblemsNoted DateDiagnosed DatePatient on antidepressant monitoring plan 01/09/2025aseline PHQ-9001/09/2025OB Lwuivlhfa38/20/2025 [place] [id number] Care Teams Team MemberRelationshipSpecialtyStart DateEnd Morenita Javed MD, IBCLC [address] [place] [address] PCP - GeneralFamily Toixqgye61/28/24
--- NOTE | 2025-03-29 17:45 | ED_ITS ---
HPI HPI - General Adult General Chief complaint: Vaginal Bleeding Stated complaint: VAGINAL BLEED - 8 WEEKS PREG Time Seen by Provider: 03/29/25 16:39 Source: patient Mode of arrival: walk-in Limitations: no limitations History of Present Illness HPI narrative: 19-year-old female presents to the emergency room with chief complaint of vaginal bleeding. Patient states she is approximately 8 weeks . She had a ultrasound approximately 6 weeks goods confirmed single live intrauterine . She states she began to have abdominal pain and cramping and spotting earlier today. Patient's 2 para 0. She states she had a previous with elective . Patient states she believes she is positive blood type but is uncertain of which type of blood. She sees Dr. Palacios with [facility]. Related Data Home Medications ?Medication ?Instructions ?Recorded ?Confirmed No Known Home Medications 03/29/2503/10 Allergies Allergy/AdvReac Type Severity Reaction Status Date / Time No Known Drug Allergies Allergy Verified 03/29/25 16:57 Opioid HPI Opioid Management Most Recent Opioid Data: Last Pain Scale 1 Today, 16:58 Review of Systems ROS Status of ROS 10 or more systems reviewed and unremark able except as noted in history and below PFSH PFSH Social History Little interest or pleasure in doing things: not at all Feeling down, depressed, or hopeless: not at all Exam Narrative Exam Narrative: All Systems are negative except as noted/marked.All systems reviewed and otherwise negative Nurses note and vital signs reviewed and patient is not hypoxic. General: The patient appears well and in no apparent distress. Patient is resting comfortably on cart. Skin: Warm, dry, no pallor noted. There is no rash noted. Head: Normocephalic, atraumatic Eye: Normal conjunctiva, no drainage, EOMI. PERRL Ears, Nose, Mouth, and Throat: oral mucosa is moist. Nares patent. Mouth without vesicles. Ear canals patent. Tm's without Erythema Cardiovascular: Regular Rate and Rhythm Respiratory: Patient is in no distress, no accessory muscle use, lungs are clear to auscultation, no wheezing, rales or rhonchi : Small amount of vaginal bleeding subjectively per patient, Musculoskeletal: The patient has no evidence of calf tenderness, no pitting edema, symmetrical pulses noted bilaterally Neurological: A&O x4, normal speech Psychiatric: Cooperative Constitutional Vital Signs, click to edit/add: Last Vital Signs Temp 98.8 F 03/29/25 16:58 Pulse 81 03/29/25 16:58 Resp 12 03/29/25 16:58 BP 111/71 03/29/25 16:58 Pulse Ox 100 03/29/25 16:58 O2 Del Method Room Air 03/29/25 16:58 Course Vital Signs Vital signs: Vital Signs Temperature 98.8 F 03/29/25 16:58 Pulse Rate 81 03/29/25 16:58 Respiratory Rate 12 03/29/25 16:58 Blood Pressure 111/71 03/29/25 16:58 Pulse Oximetry 100 03/29/25 16:58 Oxygen Delivery Method Room Air 03/29/25 16:58 Temperature 98.8 F 03/29/25 16:58 Pulse Rate 81 03/29/25 16:58 Respiratory Rate 12 03/29/25 16:58 Blood Pressure 111/71 03/29/25 16:58 Pulse Oximetry 100 03/29/25 16:58 Oxygen Delivery Method Room Air 03/29/25 16:58 Medical Decision Making MDM Narrative Medical decision making narrative: 19-year-old female presents to the emergency room with chief complaint of vaginal bleeding. Patient states she is approximately 8 weeks . She had a ultrasound approximately 6 weeks goods confirmed single live intrauterine . She states she began to have abdominal pain and cramping and spotting earlier today. Patient's 2 para 0. She states she had a previous with elective . Patient states she believes she is positive blood type but is uncertain of which type of blood. She sees Dr. Palacios with [facility]. 19-year-old female present here with chief complaint of vaginal bleeding and cramping. Ultrasound was performed today as well as hCG quant hCG quant was a rate of 14,920. Patient believes she was approximately 8 weeks 2 days . Ultrasound was repeated here today as she had a previous ultrasound around 6 weeks that shows patient had approximately 6 weeks gestation with no cardiac activity questionable demise. Patient is going to follow-up with her ASSISTANT MAINTENANCE MANAGER. Patient be given order for quant hCG levels to have repeated encouraged to follow-up with her ASSISTANT MAINTENANCE MANAGER on 04/01/2025. Patient is Rh+. Patient made aware of results and will be followed up with her ASSISTANT MAINTENANCE MANAGER Differential Diagnosis Differential Diagnosis: Threatened miscarriage, demise, bleeding with preg emma Medical Records Medical records reviewed: Yes I reviewed the patient's medical records Lab Data Lab results reviewed: Yes I reviewed the patient's lab results Labs: Lab Results 03/29/25 Range/Units 18:12 WBC 8.2 (4.0-11.0) 10^3/uL RBC 4.41 (4.20-5.40) 10^6/uL Hgb 14.6 (12.0-16.0) g/dL Hct 40.7 (36.0-48.0) % MCV 92.3 (81.0-99.0) fL MCH 33.1 (26.7-34.0) pg MCHC 35.9 H (29.9-35.2) g/dL RDW 11.4 (11.0-15.0) % Plt Count 302 (150-450) 10^3/uL MPV 9.0 L (9.5-13.5) fL Neut % (Auto) 67.0 (43.0-75.0) % Lymph % (Auto) 25.3 (20.5-60.0) % [place] % (Auto) 6.2 (1.7-12.0) % Eos % (Auto) 0.9 (0.9-7.0) % Baso % (Auto) 0.5 (0.2-2.0) % Neut # (Auto) 5.5 (1.4-6.5) 10^3/uL Lymph # (Auto) 2.1 (1.2-3.8) 10^3/uL [place] # (Auto) 0.5 (0.3-0.8) 10^3/uL Eos # (Auto) 0.1 (0.0-0.7) 10^3/uL Baso # (Auto) 0.0 (0.0-0.1) 10^3/uL Abs Immat Gran (auto) 0.01 (0.00-0.03) 10^3/uL Imm/Tot Granulo (auto) 0.1 (0.0-0.5) % Sodium 139 (136-145) mmol/L Potassium 3.9 (3.5-5.1) mmol/L Chloride 104 (98-107) mmol/L Carbon Dioxide 27.4 (21.0-32.0) mmol/L Anion Gap 11.5 BUN 9.0 (7.0-18.0) mg/dL Creatinine 0.58 (0.55-1.02) mg/dL Est GFR ( Amer) >60 (>=60 mL/min/1.73m^2) Est GFR (Non-Af Amer) >60 (>=60 mL/min/1.73m^2) BUN/Creatinine Ratio 15.5 Glucose 86 (74-106) mg/dL Calcium 9.0 (8.5-10.1) mg/dL Total Bilirubin 0.4 (0.2-1.0) mg/dL AST 29 (15-37) U/L ALT 56 (14-59) U/L Alkaline Phosphatase 78 (46-116) U/L Total Protein 7.2 (6.4-8.2) g/dL Albumin 4.0 (3.4-5.0) g/dL Globulin 3.2 g/dL Albumin/Globulin Ratio 1.3 HCG, Quant 78732 mIU/mL Urine Color Lt. yellow (YELLOW) Urine Clarity Clear (CLEAR) Urine pH 6.0 (5.0-9.0) Ur Specific [place] <=1.005 A (1.005-1.025) Urine Protein Negative (NEG/TRACE) mg/dL Urine Glucose (UA) Negative (NEGATIVE) mg/dL Urine Ketones Negative (NEGATIVE) mg/dL Urine Occult Blood Large A (NEGATIVE) Urine Nitrite Negative (NEGATIVE) Urine Bilirubin Negative (NEGATIVE) Urine Urobilinogen 0.2 (0.2-1.0) EU/dL Ur Leukocyte Esterase Negative (NEGATIVE) Urine RBC 20-50 A (0-2) #/HPF Urine WBC None seen (NONE SEEN) #/HPF Ur Squamous Epith Cells Few A (NONE/RARE) #/LPF Urine Crystals None seen (None Seen) #/HPF Urine Bacteria Trace A (NONE SEEN) #/HPF Urine Casts None seen (NONE SEEN) #/LPF Urine Mucus None seen (NONE SEEN) Ur Culture Indicated? No Urine HCG, Qual Positive A (NEGATIVE) Blood Type A Positive Imaging Data us: Radiologist's impression: ITS Impressions Transvaginal US 03/29/25 17:45 IMPRESSION: 6 week intrauterine gestation without cardiac activity concerning for demise. Trace free fluid in cul-de-sac. Unremarkable ovaries with right corpus luteum cyst. No adnexal mass. Impression dictated by: Haja Nur M.D. 03/29/2025 7:55 PM Dictation Location: [employer] Electronically authenticated by: [id number] Y Date: 03/29/2025 19:55 Discharge Plan Discharge Chief Complaint: Vaginal Bleeding Clinical Impression: Threatened Patient Disposition: Home, Self-Care Time of Disposition Decision: 21:00 Prescriptions / Home Meds: No Action No Known Home Medications Print Language: Mosotho Instructions: Threatened Miscarriage (ED) Additional Instructions: your HCG quant is a level of 14,920 this evening. repeat Quant 48 hours. call your ob office on tuesday04/01/25 Referrals: WALDEMAR PALACIOS [Physician, Unknown] - 04/01/25 Morenita Javed MD [Primary Care Provider] - 1 week
--- NOTE | 2025-03-29 17:45 | US_ITS ---
The [address] [address] Patient Name: COREY ROSAS MRN: [id number] date: 2005 Sex: F Assigned Patient Location: ER Current Patient Location: ER Accession/Order Number: [id number] Exam Date: 03/29/2025 18:40 Report Date: 03/29/2025 19:55 At the request of: ARIELA ANDERSON Procedure: US OB transvaginal First trimester ultrasound with transabdominal transvaginal imaging HISTORY: Vaginal bleeding with Gestational sac, yolk sac and pole seen. No cardiac activity identified. Uterus is anteverted. The right ovary measures 3.8 x 1.8 x 2.7 cm. Right ovary contains a corpus luteal cyst measuring up to 0.3 cm. Left ovary measures 2.6 x 1.9 x 2.5 cm. The cervical length 3.1 cm. Cervical os closed. The estimated gestational age by ultrasound 6 weeks 0 days. Small amount of free fluid in cul-de-sac. US/US OB transvaginal IMPRESSION: 6 week intrauterine gestation without cardiac activity concerning for demise. Trace free fluid in cul-de-sac. Unremarkable ovaries with right corpus luteum cyst. No adnexal mass. Impression dictated by: Haja Nur M.D. 03/29/2025 7:55 PM Dictation Location: [place] [address] Electronically authenticated by: [id number] Y Date: 03/29/2025 19:55
[2025-03-29 18:22] LABS: Hematocrit 40.7 % (36.0-48.0); Hemoglobin 14.6 g/dL (12.0-16.0); Immature Granulocytes Abs Auto 0.01 10^3/uL (0.00-0.03); Immature Granulocytes Pct Auto 0.1 % (0.0-0.5); Lymphocytes Absolute Auto 2.1 10^3/uL (1.2-3.8); Mean Corpuscular HGB Conc 35.9 g/dL (29.9-35.2); Mean Corpuscular Hemoglobin 33.1 pg (26.7-34.0); Mean Corpuscular Volume 92.3 fL (81.0-99.0); Platelet Count 302 10^3/uL (150-450); Red Blood Count 4.41 10^6/uL (4.20-5.40); White Blood Count 8.2 10^3/uL (4.0-11.0)
[2025-03-29 18:26] LABS: Glucose Urine UA NEGATIVE (NEGATIVE); HCG Qualitative Urine* POSITIVE (NEGATIVE)
[2025-03-29 18:37] LABS: Alanine Aminotransferase 56 U/L (14-59); Albumin Globulin Ratio 1.3; Albumin Level 4.0 g/dL (3.4-5.0); Alkaline Phosphatase 78 U/L (46-116); Anion Gap 11.5; Aspartate Amino Transferase 29 U/L (15-37); Blood Urea Nitrogen 9.0 mg/dL (7.0-18.0); Calcium 9.0 mg/dL (8.5-10.1); Carbon Dioxide 27.4 mmol/L (21.0-32.0); Chloride 104 mmol/L (98-107); Estimated GFR (African America >60 (>=60 mL/min/1.73m^2); Estimated GFR (Non-African Ame >60 (>=60 mL/min/1.73m^2); Globulin 3.2 g/dL; Glucose 86 mg/dL (74-106); Potassium 3.9 mmol/L (3.5-5.1); Sodium 139 mmol/L (136-145); Total Protein 7.2 g/dL (6.4-8.2)
[2025-03-29 18:38] LABS: Cast Seen? NONE SEEN #/LPF (NONE SEEN); Crystals Seen? None Seen #/HPF (None Seen); Urine Culture Indicated NO
[2025-03-29 21:08] VITALS: BP 110/62; PULSE 72; O2SAT 99
== END 2025-03-29 21:10 | disposition home or self-care (01) ==
PROVIDERS: Physician Assistant; Emergency Provider Emergency Medicine; PCP Student in an Organized Health Care Education/Training Program
DX: O20.0 Threatened abortion (principal); Z3A.08 8 weeks gestation of pregnancy
CPT/HCPCS: 36415; 76817; 80053; 81001; 84702; 84703; 85025; 86900; 86901; 99285